=== PATIENT | female | born 2000 | race Caucasian/White ===

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

== ENCOUNTER 2018-01-11 04:29 | Emergency (ER) | payer OTHER, MEDICAID | END 2018-01-11 05:35 | disposition home or self-care (01) | LOC: FTE 04:29 | DX: B07.9 Viral wart, unspecified (principal) | CPT/HCPCS: 99283; Z7502 ==